=== PATIENT | male | born 1980 | race Two or more races ===

== ENCOUNTER 2018-08-01 17:49 | Emergency (ER) | payer SELFPAY ==
[~2018-08-01] VITALS: Ht 172.7 cm; Wt 72.6 kg
[2018-08-01 18:12] VITALS: BP 125/86
== END 2018-08-01 20:36 | disposition left against medical advice (07) ==
LOC: EDBD 17:49 → ER 17:54
DX: M25.511 Pain in right shoulder (principal); R51 Headache; Z53.21 Procedure and treatment not carried out due to patient leaving prior to being seen by health care provider; W19.XXXA Unspecified fall, initial encounter; Y93.89 Activity, other specified; Y99.8 Other external cause status; Y92.89 Other specified places as the place of occurrence of the external cause
CPT/HCPCS: 70450; 73000; 73030